=== PATIENT | female | born 1970 | race Two or more races ===

== ENCOUNTER 2024-03-29 09:37 | Inpatient (IN) | payer OTHER ==
[~2024-03-29] VITALS: Ht 167.6 cm; Wt 77.0 kg
[2024-03-29 10:36] LABS: Basophils # (auto) 0 10 ^3/uL (0-0.2); Basophils % (auto) 0.3 % (0.0-2.0); Eosinophils # (auto) 0 10 ^3/uL (0-0.8); Eosinophils % (auto) 0.1 % (0.0-7.0)
[2024-03-29 10:37] LABS: Hematocrit 32.3 % (36.0-46.0); Hemoglobin 10.7 g/dL (12.2-16.2); Lymphocytes # (auto) 0.7 10 ^3/uL (0.4-5.4); Lymphocytes % (auto) 5.1 % (10.0-50.0); Mean Corpuscular Hemoglobin 26.1 pg (28.0-32.0); Mean Corpuscular Hgb Conc. 33.1 g/dL (32.0-36.0); Mean Corpuscular Volume 78.9 fL (80.0-100.0); Monocytes # (auto) 1.4 10 ^3/uL (0-1.3); Monocytes % (auto) 9.8 % (0.0-12.0); Neutrophils % (auto) 84.7 % (37.0-80.0); Platelet Count (auto) 239 10^3/uL (140-450); Red Cell Distribution Width 17.6 % (11.8-14.3); White Blood Cell 14.1 10^3/uL (4.4-10.8)
[2024-03-29 10:44] LABS: Chloride 97 mmol/L (98-107); Potassium 3.8 mmol/L (3.5-5.1); Sodium 132 mmol/L (136-145)
[2024-03-29 10:45] LABS: Anion Gap 7 (5-15); Carbon Dioxide 28 mmol/L (20-31)
[2024-03-29 10:46] LABS: Calcium 9.5 mg/dL (8.7-10.4)
[2024-03-29 10:51] LABS: BUN/Creatinine Ratio 10.9 (10.0-20.0); Blood Urea Nitrogen 11 mg/dL (9-23); Glucose 336 mg/dL (74-106); Lipase 55 U/L (12-53)
--- NOTE | 2024-03-29 11:08 | ED.PDOC ---
GI ASSESSMENT HPI Comments 53 year old female presents to the ED with chief complaint of abdominal pain. Patient reports that she has been experiencing suprapubic abdominal pain that radiates up to her epigastric region along with associated symptoms of chills, fever, difficulty urinating, dysuria, cough, and headache for the past 4 days. Patient denies any N/V/D, dizziness, hematuria, melena, SOB, or chest pain. Chief Complaint: Abdominal Pain Time Seen by MD: 11:05 Reviewed Notes: Nurses Notes, Medications, Allergies Allergies: Coded Allergies: Erythromycin (Verified Allergy, Unknown, 03/29/24) Penicillins (Verified Allergy, Unknown, 03/29/24) Information Source: Patient Mode of Arrival: Ambulatory Timing: Days Duration: Since onset Prehospital treatment: None Quality: Aching Vomitus: None Stool: Normal Severity: Moderate Recent: None Recent Hx of: None Pain Location: Epigastric, Suprapubic Modifying Factors: Nothing Associated sign and symptoms: Abdominal Pain, Fever Past Medical History PAST MEDICAL HISTORY: DM Surgical History: Cholecystectomy, Hysterectomy (Partial) [employer]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 all [employer]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 Hx Family History Family History: Reviewed,noncontributory to illness Social History Smoker: Non-Smoker Alcohol: Denies ETOH Use Drugs: Denies Drug Use Lives In: Home Constitutional: reports: chills, fever; denies: diaphoresis, fatigue, malaise, sweats, weakness, others EENTM: denies: blurred vision, double vision, ear bleeding, ear discharge, ear drainage, ear pain, ear ringing, eye pain, eye redness, hearing loss, mouth pain, mouth swelling, nasal discharge, nose bleeding, nose congestion, nose pain, photophobia, tearing, throat pain, throat swelling, voice changes, others Respiratory: reports: cough; denies: hemoptysis, orthopnea, SOB at rest, shortness of breath, SOB with excertion, stridor, wheezing, others Cardiovascular: denies: chest pain, dizzy spells, diaphoresis, Dyspnea on exertion, edema, irregular heart beat, left arm pain, lightheadedness, palpitations, PND, syncope, others Gastrointestinal: reports: abdominal pain; denies: abdomen distended, blood streaked bowels, constipated, diarrhea, dysphagia, difficulty swallowing, hematemesis, melena, nausea, poor appetite, poor fluid intake, rectal bleeding, rectal pain, vomiting, others Genitourinary: reports: dysuria, others (Difficulty urinating); denies: abnormal vagina bleeding, burning, dyspareunia, flank pain, frequency, hematuria, incontinence, pain, , vagina discharge, urgency Neurological: reports: headache; denies: dizziness, fainting, left sided numbness, left sided weakness, numbness, paresthesia, pre-existing deficit, right sided numbness, right sided weakness, seizure, speech problems, tingling, tremors, weakness, others Musculoskeletal: denies: back pain, gout, joint pain, joint swelling, muscle pain, muscle stiffness, neck pain, others Integumetry: denies: bruises, change in color, change in hair/nails, dryness, laceration, lesions, lumps, rash, wounds, others Allergic/Immunocompromised: denies: Difficulty Healing, Frequent Infections, Hives, Itching, others Hematologic/Lymphatic: denies: anemia, blood clots, easy bleeding, easy bruising, swollen glands, others Endocrine: denies: excessive hunger, excessive sweating, excessive thirst, excessive urination, flushing, intolerance to cold, intolerance to heat, unexplained weight gain, unexplained weight loss, others Psychiatric: denies: anxiety, bipolar disorder, depression, hopeless, panic disorder, schizophrenia, sleepless, suicidal, others All Other Systems: Reviewed and Negative Physical Exam General Appearance: Moderate Distress, Normal HEENT: Normal ENT Inspection, PERRL/EOMI Neck: Full Range of Motion, Non-Tender, Normal, Normal Inspection Respiratory: Chest Non-Tender, Lungs Clear, No Accessory Muscle Use, No Respiratory Distress, Normal Breath Sounds Cardiovascular: No Edema, No JVD, No Murmur, No Gallop, Normal Peripheral Pulses, Tachycardia Breast Exam: Deferred Gastrointestinal: No Organomegaly, Non Tender, No Pulsatile Mass, Normal Bowel Sounds, Soft Genitalia: Deferred Pelvic: Deferred Rectal: Deferred Extremities: No calf tenderness, Normal capillary refill, Normal inspection, Normal range of motion, Non-tender, No pedal edema Musculoskeletal : Apperance: Normal Neurologic: Alert, endoscopy rn II-XII nml as Tested, No Motor Deficits, Normal Affect, Normal Mood, No Sensory Deficits Cerebellar Function: NOT DONE Reflexes: NOT DONE Skin: Dry, Normal Color, Warm Peripheral Pulses: 3+ Radial (R), 3+ Radial (L) Lymphatic: No Adenopathy Was a procedure done? Was a procedure done?: No GI differential Dx Differential Diagnosis: Constipation, Diverticular disease, Esophagitis, Gastritis/PUD, Gastroenteritis X-Ray, Labs, Meds, VS Vital Signs Date Time Temp Pulse Resp B/P (MAP) Pulse Ox O2 Delivery O2 Flow Rate FiO2 03/29/24 10:05 118 03/29/24 09:55 100.0 114 20 119/65 (83) 96 03/29/24 09:55 100.0 114 20 119/65 (83) 96 100.0 Lab Test 03/29/24 10:19 03/29/24 10:00 Range/Units White Blood Count 14.1 H 4.4-10.8 10^3/uL Red Blood Count 4.10 4.0-5.20 10^6/uL Hemoglobin 10.7 L 12.2-16.2 g/dL Hematocrit 32.3 L 36.0-46.0 % Mean Corpuscular Volume 78.9 L 80.0-100.0 fL Mean Corpuscular Hemoglobin 26.1 L 28.0-32.0 pg Mean Corpuscular Hemoglobin Concent 33.1 32.0-36.0 g/dL Red Cell Distribution Width 17.6 H 11.8-14.3 % Platelet Count 239 140-450 10^3/uL Mean Platelet Volume 8.1 6.9-10.8 fL Neutrophils (%) (Auto) 84.7 H 37.0-80.0 % Lymphocytes (%) (Auto) 5.1 L 10.0-50.0 % Monocytes (%) (Auto) 9.8 0.0-12.0 % Eosinophils (%) (Auto) 0.1 0.0-7.0 % Basophils (%) (Auto) 0.3 0.0-2.0 % Neutrophils # (Auto) 12.0 H 1.6-8.6 10 ^3/uL Lymphocytes # (Auto) 0.7 0.4-5.4 10 ^3/uL Monocytes # (Auto) 1.4 H 0-1.3 10 ^3/uL Eosinophils # (Auto) 0 0-0.8 10 ^3/uL Basophils # (Auto) 0 0-0.2 10 ^3/uL Nucleated Red Blood Cells 0.0 % Sodium Level 132 L 136-145 mmol/L Potassium Level 3.8 3.5-5.1 mmol/L Chloride Level 97 L 98-107 mmol/L Carbon Dioxide Level 28 20-31 mmol/L Anion Gap 7 5-15 Blood Urea Nitrogen 11 9-23 mg/dL Creatinine 1.01 0.550-1.02 mg/dL Glomerular Filtration Rate Calc 66 >90 mL/min BUN/Creatinine Ratio 10.9 10.0-20.0 Serum Glucose 336 H 74-106 mg/dL Calcium Level 9.5 8.7-10.4 mg/dL Lipase 55 H 12-53 U/L Urine Color Light-yellow Yellow Urine Clarity Cloudy H Clear Urine pH 6.0 5.0-9.0 Urine Specific [place] 1.007 1.001-1.035 Urine Protein 1+ H Negative Urine Ketones Negative Negative Urine Blood Trace H Negative /uL Urine Nitrite Negative Negative Urine Bilirubin Negative Negative Urine Urobilinogen Normal Negative mg/dL Urine Leukocyte Esterase 3+ Negative /uL Urine RBC 3 0 - 4 /hpf Urine WBC 348 0 - 5 /hpf Urine Squamous Epithelial Cells Few <5 /hpf Urine Bacteria Few H None Seen /hpf Urine Glucose 4+ H Normal mg/dL Patient alert. Complaining of abdominal pain. Vitals stable. Answering all questions. Lipase elevated. Possible pancreatitis. Urinalysis shows sepsis. Urosepsis. Blood sugar elevated. Establish intravenous access. Was given fluids. She has fever. She is tachycardic. Blood cultures. Lactic acid level. Was given insulin. Was given Levaquin. Reviewed her previous visit. Explained to the patient. Continue cardiac monitoring. Time of 1ST Reevaluation: 12:05 Reevaluation 1ST: Unchanged Patient Education/Counseling: Diagnosis, Treatment Family Education/Counseling: No Family Present Departure 1 Departure Time of Disposition: 12:39 Impression: Primary Impression: Sepsis Qualified Codes: A41.9 - Sepsis, unspecified organism Additional Impressions: Acute pancreatitis Qualified Codes: K85.90 - Acute pancreatitis without necrosis or infection, unspecified Sepsis due to urinary tract infection Uncontrolled diabetes mellitus Qualified Codes: E13.65 - Other specified diabetes mellitus with hyperglycemia Disposition: ADMITTED INPATIENT Admit to: Med Surg Condition: Guarded Critical Care Note Critical Care Time?: Yes (90 min-critical care time only) Stability Stability form required: No Heart Score Heart Score: Heart Score Response (Comments) Value History N/A 0 EKG N/A 0 Age N/A 0 Risk Factors N/A 0 Troponin N/A 0 Total 0 I personally scribed for REX RODRIGUEZ MD ([email or web address]) on 03/29/24 at 11:08. Electronically submitted by Branden Sanchez ([email or web address]). REX RODRIGUEZ MD Mar 29, 2024 11:08
[2024-03-29 11:32] LABS: Urine Bacteria FEW /hpf (None Seen); Urine Blood TRACE /uL (Negative); Urine Color Light-Yellow (Yellow); Urine Protein, UAD 1+ (Negative); Urine Specific Gravity 1.007 (1.001-1.035); Urine Urobilinogen Normal (Negative); Urine WBC 348 /hpf (0 - 5)
[2024-03-29 11:36] LABS: Urine Clarity Cloudy (Clear)
[2024-03-29] MEDS: SODIUM CHLORIDE 0.9% 1,000 ML IV ONE ×2 (14:47→16:09)
[2024-03-29] MEDS ORDERED: DEXTROSE (50%) 50ML SYRG IV PRN (16:00)
[2024-03-29] MEDS ORDERED: HYDROcodone-ACET 5/325MG TAB PO PRN (16:00)
[2024-03-29] MEDS ORDERED: MORPHINE SULFATE INJ 2 MG/ml SYRG IV PRN (16:00)
[2024-03-29] MEDS ORDERED: ONDANSETRON HCL 4 MG/2 ML VIAL IV PRN (16:00)
[2024-03-29] MEDS ORDERED: SIMV20TA20 PO (16:05)
[2024-03-29] MEDS ORDERED: PREG100C66 PO (16:05)
[2024-03-29] MEDS ORDERED: PANT40T PO (16:05)
[2024-03-29] MEDS: InsuLIN REG 1unit/0.01ml Soln (100units/ml) IV ONE (16:09)
[2024-03-29] MEDS: levoFLOXacin 500MG 100 ML IV ONE (16:13)
[2024-03-29 16:15] VITALS: PULSE 122; RESP 18; O2SAT 99
--- NOTE | 2024-03-29 16:53 | DVH ---
Procedure: CT CT AB PEL WO CON-NO ORAL OR IV 03/29/2024 04:12 PM Indication:Abdominal pain. Comparison Study: None available at time of dictation. Technique: Axial images were obtained and reformatted in coronal and sagittal planes. All CT scans at this medical facility are performed using dose modulation techniques as appropriate t o a performed exam including the following: Automated exposure control was utilized; adjustment of th e MA and/or KV according to patient size; and use of iterative reconstruction technique. CT Dose: CTDI volume is 8.59 mGy. Dose-length product is 408.04 mGy*cm FINDINGS: Lower Chest: Unremarkable. Hepatobiliary: Hepatic steatosis. Gallbladder is surgically absent. Spleen: Unremarkable. Pancreas: Unremarkable. Adrenal Glands: Unremarkable. tract: The kidneys are normal in size bilaterally without hydronephrosis or nephrolithiasis. Bilat eral perinephric fat stranding noted. Suboptimal evaluation of bladder due to incomplete distention. A subcentimeter lucency seen in the left bladder wall. GI tract: The stomach is grossly normal in appearance. No evidence of small bowel obstruction. Scatte red colonic diverticula are noted without evidence of diverticulitis. The appendix is normal. Lymphatics: No mesenteric, retroperitoneal or periportal lymphadenopathy. Vasculature: The abdominal aorta is normal in in caliber. Pelvic Organs: Unremarkable Bones/soft tissues: No acute abnormality. Degenerative changes of the lumbar spine noted. Small fat-c ontaining umbilical hernia. Other: None. IMPRESSION: 1. Bilateral perinephric fat stranding without hydronephrosis or hydroureter. Pyelonephritis can not be ruled out. Evaluation is limited without IV contrast. Recommend clinical and biochemical correlat ion. 2. Subcentimeter lucent the left lateral bladder wall air or fatty lesion such as lipoma. Recommend c orrelation with ultrasound .
[2024-03-29] MEDS: ACCU-CHEK COMFORT CURVE STRIP VI SCH (17:54)
[2024-03-29] MEDS: InsuLIN REG 1unit/0.01ml Soln (100units/ml) SC SCH ×2 (17:55→22:18)
--- NOTE | 2024-03-29 18:24 | DVHHP2 ---
History of Present Illness Reason for Visit: Dysuria, suprapubic pain History of Present Illness 53-year-old female presented to the ED with chief complaint of abdominal pain. Patient reported that she had been experiencing suprapubic abdominal pain that radiated to the epigastric region along with chills, fever, difficulty ur inating, cough and headaches for the past 4 days. Patient denies chest pain, headache, dizziness, diaphoresis, shortness of breath, no nausea, vomiting endorsed by the patient. Patient was admitted for further evaluation medical management. Past Medical History DM Past Surgical History Cholecystectomy, Hysterectomy (Partial) Family History Reviewed noncontributory to the management of this case Smoke: No ALCOHOL: none Drugs: None Lives: with Family Review of Systems Constitutional: Yes: Chills; No: Fever, Sweats, Weakness, Malaise, Other Eyes: No: Pain, Vision change, Conjunctivae inflammation, Eyelid inflammation, Other, Redness ENT: No: Ear pain, Ear discharge, Nose pain, Nose discharge, Nose congestion, Mouth pain, Mouth swelling, Throat pain, Throat swelling, Other Respiratory: No: Cough, Dry, Shortness of breath, SOB with excertion, Wheezing, Hemoptysis, Pleuritic Pain, Sputum, Wheezing, Other Cardiovascular: No: Chest Pain, Palpitations, Orthopnea, Paroxysmal Noc. Dyspnea, Edema, Lt Headedness, Other Gastrointestinal: Abdominal Pain; No: Nausea, Vomiting, Diarrhea, Constipation, Melena, Hematochezia, Other Genitourinary: Dysuria; No Frequency, No Incontinence, No Hematuria, No Retention; Other (CVA tenderness) Musculoskeletal: No: other, neck pain, shoulder pain, arm pain, back pain, hand pain, leg pain, foot pain Skin: No: Rash, Lesions, Jaundice, Bruising, Other Neurological: No: Weakness, Numbness, Incoordination, Change in speech, Confusion, Seizures, Other Allergies: Coded Allergies: Erythromycin (Verified Allergy, Unknown, 03/29/24) Penicillins (Verified Allergy, Unknown, 03/29/24) Medications Current Medications Medications Dose Ordered Sig/Kay Route Start Time Stop Time Status Last Admin Dose Admin Acetaminophen/ Hydrocodone Bitart 1 tab Q4HP PRN PO 03/29/24 16:00 Ondansetron HCl 4 mg Q4HP PRN IV 03/29/24 16:00 Morphine Sulfate 2 mg Q4HPRN PRN IV 03/29/24 16:00 Diagnostic Test (Pha) 1 strip ACHS 03/29/24 17:00 03/29/24 17:54 1 STRIP Insulin Human Regular HS SC 03/29/24 22:00 Insulin Human Regular AC SC 03/29/24 17:00 03/29/24 17:55 2 UNITS Dextrose 50 ml UD PRN IV 03/29/24 16:00 Pantoprazole Sodium 40 mg DAILY PO 03/30/24 10:00 Pregabalin 100 mg BID PO 03/29/24 22:00 Atorvastatin Calcium 10 mg HS PO 03/29/24 22:00 Lorazepam 0.5 mg Q12HP PRN PO 03/29/24 17:30 Exam Vital Signs Vital Signs Date Time Temp Pulse Resp B/P (MAP) Pulse Ox O2 Delivery O2 Flow Rate FiO2 03/29/24 16:15 122 18 129/65 (86) 99 03/29/24 16:15 Room Air* 0 21 03/29/24 14:36 99.9 99.9 General Appearance: Alert, Oriented X3, Cooperative, No acute distress HEENT: Atraumatic, PERRLA, EOMI, Mucous membr. moist/pink Respiratory: Clear to auscultation, Normal air movement Cardiovascular: Regular rate, Normal S1, Normal S2, No murmurs Abdominal: Normal bowel sounds, Soft, No tenderness, No hepatospenomegaly, No masses Extremities: No clubbing, No cyanosis, No edema, Normal pulses, No tenderness/swelling Skin: No rashes, No breakdown, No significant lesion Neuro: Normal gait, Normal speech, Strength at 5/5 X4 ext, Normal tone, Sensation intact, Cranial nerves 3-12 NL, Reflexes 2+ Psych/Mental Status: Mental status NL, Mood NL Labs/Xrays Labs, imaging and ED notes reviewed Labs Test 03/29/24 17:33 03/29/24 15:41 03/29/24 10:19 03/29/24 10:00 Range/Units POC Glucose 155 H 70-106 mg/dl Lactic Acid Level 1.9 0.4-2.0 mmol/L White Blood Count 14.1 H 4.4-10.8 10^3/uL Red Blood Count 4.10 4.0-5.20 10^6/uL Hemoglobin 10.7 L 12.2-16.2 g/dL Hematocrit 32.3 L 36.0-46.0 % Mean Corpuscular Volume 78.9 L 80.0-100.0 fL Mean Corpuscular Hemoglobin 26.1 L 28.0-32.0 pg Mean Corpuscular Hemoglobin Concent 33.1 32.0-36.0 g/dL Red Cell Distribution Width 17.6 H 11.8-14.3 % Platelet Count 239 140-450 10^3/uL Mean Platelet Volume 8.1 6.9-10.8 fL Neutrophils (%) (Auto) 84.7 H 37.0-80.0 % Lymphocytes (%) (Auto) 5.1 L 10.0-50.0 % Monocytes (%) (Auto) 9.8 0.0-12.0 % Eosinophils (%) (Auto) 0.1 0.0-7.0 % Basophils (%) (Auto) 0.3 0.0-2.0 % Neutrophils # (Auto) 12.0 H 1.6-8.6 10 ^3/uL Lymphocytes # (Auto) 0.7 0.4-5.4 10 ^3/uL Monocytes # (Auto) 1.4 H 0-1.3 10 ^3/uL Eosinophils # (Auto) 0 0-0.8 10 ^3/uL Basophils # (Auto) 0 0-0.2 10 ^3/uL Nucleated Red Blood Cells 0.0 % Sodium Level 132 L 136-145 mmol/L Potassium Level 3.8 3.5-5.1 mmol/L Chloride Level 97 L 98-107 mmol/L Carbon Dioxide Level 28 20-31 mmol/L Anion Gap 7 5-15 Blood Urea Nitrogen 11 9-23 mg/dL Creatinine 1.01 0.550-1.02 mg/dL Glomerular Filtration Rate Calc 66 >90 mL/min BUN/Creatinine Ratio 10.9 10.0-20.0 Serum Glucose 336 H 74-106 mg/dL Calcium Level 9.5 8.7-10.4 mg/dL Lipase 55 H 12-53 U/L Urine Color Light-yellow Yellow Urine Clarity Cloudy H Clear Urine pH 6.0 5.0-9.0 Urine Specific [place] 1.007 1.001-1.035 Urine Protein 1+ H Negative Urine Ketones Negative Negative Urine Blood Trace H Negative /uL Urine Nitrite Negative Negative Urine Bilirubin Negative Negative Urine Urobilinogen Normal Negative mg/dL Urine Leukocyte Esterase 3+ Negative /uL Urine RBC 3 0 - 4 /hpf Urine WBC 348 0 - 5 /hpf Urine Squamous Epithelial Cells Few <5 /hpf Urine Bacteria Few H None Seen /hpf Urine Glucose 4+ H Normal mg/dL Assessment/Plan Assessment/Plan Acute pyelonephritis Admit to medical/surgical Started on antibiotics Pain meds p.r.n. Zofran p.r.n. nausea CT abdomen/pelvis showed bilateral perinephric fat stranding without hydronephrosis or hydroureter. Incidental possible left bladder wall fatty lesion. History of anxiety Patient takes 1 mg Ativan q.12 hours p.r.n. Uncontrolled Diabetes mellitus type 2 Accu-Chek a.c. HS Moderate insulin sliding scale Neuropathy Resume home Lyrica dose Chronic hyperlipidemia Resume home med FEN/PPX GI prophylaxis-Protonix VTE prophylaxis-not indicated Consistent carb diet Plan discussed with: Patient My Orders Orders - AUSTIN BENJAMIN Procedure Category Date Status Time Admit ADMIT 03/29/24 Transmitted 15:48 Code Status CODE 03/29/24 Transmitted 15:48 Vital Signs [facility] 03/29/24 In Process 15:48 Review Orders With [facility] 03/29/24 In Process Adm. 15:48 Bedrest With Bathroom [facility] 03/29/24 In Process Privileg 15:48 Notify Of Changes [facility] 03/29/24 In Process From Base 15:48 Advance Directive [facility] 03/29/24 In Process 15:48 Basic Metabolic Panel LAB 03/30/24 Verified 04:00 Complete Blood Count LAB 03/30/24 Verified 04:00 Patient Condition ORDERS 03/29/24 Transmitted 15:48 Allergies EMELYN 03/29/24 In Process 15:48 Hydrocodone-Acet PHA 03/29/24 In Process 5/325mg Tab ([place] 16:00 Ondansetron Hcl PHA 03/29/24 In Process (Zofran) 16:00 Morphine Sulfate PHA 03/29/24 In Process Injection 16:00 Hemoglobin A1c LAB 03/30/24 Verified 04:00 Glucose Blood PHA 03/29/24 In Process (Accu-Chek Comfort 17:00 Insulin R (Human) PHA 03/29/24 In Process (Insulin R) 22:00 Insulin R (Human) PHA 03/29/24 In Process (Insulin R) 17:00 Dextrose 50% Syringe PHA 03/29/24 In Process 16:00 Ct Ab Pel Wo Con-No CT 03/29/24 Resulted Oral Or Iv 15:48 Pantoprazole Tablet PHA 03/30/24 In Process (Protonix Tablet) 10:00 Pregabalin Capsule PHA 03/29/24 In Process (Lyrica Capsule) 22:00 Atorvastatin (Lipitor) PHA 03/29/24 In Process 22:00 Consistent DIET 03/29/24 Transmitted Carb(Ccho)Diabetes Dinner Lorazepam Tablet PHA 03/29/24 In Process (Ativan Tablet) 17:30 Date of Service: Mar 29, 2024 Billing Provider: AUSTIN BENJAMIN Common Visit Codes: [id number] INP/OBS CARE (HIGH) AUSTIN BENJAMIN Mar 29, 2024 18:24
[2024-03-29 18:37] VITALS: BP 130/68; PULSE 129; RESP 20; TEMP 103.2; O2SAT 97
[2024-03-29] MEDS: ACETAMINOPHEN 325 MG TAB PO ONE (18:58)
--- NOTE | 2024-03-29 19:01 | ECG ---
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
[2024-03-29] MEDS: LORazepam 0.5 MG TAB PO PRN (21:11)
[2024-03-29] MEDS: PREGABALIN 25 MG CAP PO SCH (22:08)
[2024-03-29] MEDS: ATORVASTATIN 20 MG TAB PO SCH (22:09)
[2024-03-30] VITALS (8 sets, daily range): BP systolic 113–136; BP diastolic 60–78; PULSE 99–116; RESP 18–20; TEMP 98.1–99.5; O2SAT 95–97
[2024-03-30] MEDS: ACETAMINOPHEN 325 MG TAB PO PRN (02:25)
[2024-03-30] MEDS: VANCOMYCIN 1GM/200ML PREMIX IV ONE (04:15)
[2024-03-30] MEDS ORDERED: VANCOMYCIN 1GM/200ML PREMIX 200 ML IV ONE (04:15)
[2024-03-30] MEDS ORDERED: VANCOMYCIN PER PHARMACY 0 MG IV SCH (04:15)
[2024-03-30] MEDS: VANCOMYCIN 1.75GM/350ML 350 ML IV ONE (04:59)
[2024-03-30 06:22] LABS: Eosinophils # (auto) 0 10 ^3/uL (0-0.8); Hematocrit 29.9 % (36.0-46.0); Hemoglobin 9.9 g/dL (12.2-16.2); Lymphocytes # (auto) 1.3 10 ^3/uL (0.4-5.4); Lymphocytes % (auto) 8.7 % (10.0-50.0); Monocytes # (auto) 1.8 10 ^3/uL (0-1.3); Monocytes % (auto) 11.8 % (0.0-12.0); Red Blood Cells 3.75 10^6/uL (4.0-5.20)
[2024-03-30 06:25] LABS: Basophils # (auto) 0.1 10 ^3/uL (0-0.2); Basophils % (auto) 0.3 % (0.0-2.0); Eosinophils % (auto) 0.1 % (0.0-7.0); Mean Corpuscular Hemoglobin 26.3 pg (28.0-32.0); Mean Corpuscular Volume 79.5 fL (80.0-100.0); Neutrophils # (auto) 12.4 10 ^3/uL (1.6-8.6); Neutrophils % (auto) 79.1 % (37.0-80.0); Nucleated Red Blood Cells % 0.1 %; Platelet Count (auto) 248 10^3/uL (140-450); Red Cell Distribution Width 17.1 % (11.8-14.3); White Blood Cell 15.6 10^3/uL (4.4-10.8)
[2024-03-30 06:34] LABS: Chloride 103 mmol/L (98-107); Potassium 3.3 mmol/L (3.5-5.1); Sodium 137 mmol/L (136-145)
[2024-03-30 06:35] LABS: Anion Gap 7 (5-15); Calcium 9.5 mg/dL (8.7-10.4); Carbon Dioxide 27 mmol/L (20-31)
[2024-03-30 06:40] LABS: BUN/Creatinine Ratio 10.1 (10.0-20.0); Blood Urea Nitrogen 9 mg/dL (9-23); Glucose 159 mg/dL (74-106)
[2024-03-30] MEDS: PANTOPRAZOLE 40 MG TAB PO SCH (09:18)
--- NOTE | 2024-03-30 13:47 | DVHPN2 ---
Reviewed: Care Plan, H&P, Labs, Medications, Previous Orders, Radiology Changes from previous H/P or p: No Changes Eyes: No Pain, No Vision change, No Conjunctivae inflammation, No Eyelid inflammation, No Other, No Redness ENT: No Ear pain, No Ear discharge, No Nose pain, No Nose discharge, No Nose congestion, No Mouth pain, No Mouth swelling, No Throat pain, No Throat swelling, No Other Cardiovascular: No Chest Pain, No Palpitations, No Orthopnea, No Paroxysmal Noc. Dyspnea, No Edema, No Lt Headedness, No Other Respiratory: No Cough, No Dry, No Shortness of breath, No SOB with excertion, No Wheezing, No Hemoptysis, No Pleuritic Pain, No Sputum, No Other Gastrointestinal: No Nausea, No Vomiting; Abdominal Pain; No Diarrhea, No Constipation, No Melena, No Hematochezia, No Other Genitourinary: Dysuria; No Frequency, No Incontinence, No Hematuria, No Retention; Other (CVA tenderness) Musculoskeletal: No other, No neck pain, No shoulder pain, No arm pain, No back pain, No hand pain, No leg pain, No foot pain Skin: No Rash, No Lesions, No Jaundice, No Bruising, No Other Objective Vitals Vital Signs Date Time Temp Pulse Resp B/P (MAP) Pulse Ox O2 Delivery O2 Flow Rate FiO2 03/30/24 09:00 98.2 99 18 125/75 (92) 97 98.2 03/30/24 08:10 Room Air* 0 21 Intake/Output Intake and Output 03/30/24 07:00 Intake Total 1200 ml Balance 1200 ml Intake Oral 100 ml IV Total 1100 ml # Voids 2 Medications Current Medications Medications Dose Ordered Sig/Kay Route Start Time Stop Time Status Last Admin Dose Admin Acetaminophen/ Hydrocodone Bitart 1 tab Q4HP PRN PO 03/29/24 16:00 Ondansetron HCl 4 mg Q4HP PRN IV 03/29/24 16:00 Morphine Sulfate 2 mg Q4HPRN PRN IV 03/29/24 16:00 Diagnostic Test (Pha) 1 strip ACHS 03/29/24 17:00 03/30/24 11:30 1 STRIP Insulin Human Regular HS SC 03/29/24 22:00 03/29/24 22:18 6 UNITS Insulin Human Regular AC SC 03/29/24 17:00 03/30/24 11:30 6 UNITS Dextrose 50 ml UD PRN IV 03/29/24 16:00 Pantoprazole Sodium 40 mg DAILY PO 03/30/24 10:00 03/30/24 09:18 40 MG Pregabalin 100 mg BID PO 03/29/24 22:00 03/30/24 09:19 100 MG Atorvastatin Calcium 10 mg HS PO 03/29/24 22:00 03/29/24 22:09 10 MG Lorazepam 0.5 mg Q12HP PRN PO 03/29/24 17:30 03/30/24 09:19 0.5 MG Acetaminophen 650 mg Q6HP PRN PO 03/30/24 02:15 03/30/24 09:25 650 MG Vancomycin HCl 0 ml @ 0 mls/hr UD IV 03/30/24 04:15 Vancomycin HCl 150 ml @ 150 mls/hr Q12H IV 03/30/24 18:00 Laboratory Results Laboratory Tests 03/30/24 05:43 Chemistry Test 03/30/24 05:43 Calcium Level 9.5 mg/dL (8.7-10.4) HgA1c, TSH Test 03/30/24 05:43 Hemoglobin A1c 6.9 % A1C (<5.7) H Urinalysis Test 03/29/24 10:00 Urine Color Light-yellow (Yellow) Urine Clarity Cloudy (Clear) H Urine pH 6.0 (5.0-9.0) Urine Specific [place] 1.007 (1.001-1.035) Urine Protein 1+ (Negative) H Urine Ketones Negative (Negative) Urine Blood Trace /uL (Negative) H Urine Nitrite Negative (Negative) Urine Bilirubin Negative (Negative) Urine Urobilinogen Normal mg/dL (Negative) Urine Leukocyte Esterase 3+ /uL (Negative) Urine RBC 3 /hpf (0 - 4) Urine WBC 348 /hpf (0 - 5) Urine Squamous Epithelial Cells Few /hpf (<5) Urine Bacteria Few /hpf (None Seen) H Urine Glucose 4+ mg/dL (Normal) H Microbiology Microbiology Date/Time Source Procedure Growth Status 03/29/24 13:26 Blood Blood Culture - Preliminary Resulted Labs and/or images reviewed: Labs reviewed by me, Image(s) reviewed by me Assessment/Plan Assessment/Plan Secondary to acute urinary tract infection Acute urinary tract infection: Blood cultures urine cultures, stop vancomycin start Levaquin, patient is allergic to penicillin Acute bilateral pyelonephritis Diabetes: Insulin sliding scale Time spent 50 minutes Patient is full code Advanced care planning time 20 minutes Plan discussed with: Patient My Orders Orders - RODO VAN MD Procedure Category Date Status Time Urine Bacterial ANDRES 03/30/24 Logged Culture 13:44 Levofloxacin Levaquin PHA 03/31/24 Verified 10:00 Levofloxacin Levaquin PHA 03/30/24 Verified 13:45 Date of Service: Mar 30, 2024 Billing Provider: RODO VAN MD Common Visit Codes: [id number] INP/OBS CARE(HIGH) Secondary Visit Codes: [id number] CARE PLAN 30 MINUTES RODO VAN MD Mar 30, 2024 13:47
[2024-03-30] MEDS: levoFLOXacin 500MG 100 ML IV ONE (14:32)
[2024-03-30] MEDS ORDERED: VANCOMYCIN 750mg/150ml 150 ML IV SCH (18:00)
[2024-03-31 01:00] VITALS: BP 128/77; PULSE 101; RESP 18; TEMP 98.4; O2SAT 96
[2024-03-31 05:00] VITALS: BP 145/71; PULSE 111; RESP 18; TEMP 99.4; O2SAT 95
[2024-03-31 06:32] LABS: Basophils # (auto) 0 10 ^3/uL (0-0.2); Eosinophils # (auto) 0 10 ^3/uL (0-0.8); Hemoglobin 10.9 g/dL (12.2-16.2); Mean Corpuscular Hgb Conc. 33.1 g/dL (32.0-36.0); Mean Corpuscular Volume 78.5 fL (80.0-100.0); Monocytes # (auto) 1.9 10 ^3/uL (0-1.3)
[2024-03-31 06:35] LABS: Basophils % (auto) 0.2 % (0.0-2.0); Eosinophils % (auto) 0.2 % (0.0-7.0); Lymphocytes % (auto) 13.1 % (10.0-50.0); Monocytes % (auto) 12.2 % (0.0-12.0); Neutrophils # (auto) 11.5 10 ^3/uL (1.6-8.6); Neutrophils % (auto) 74.3 % (37.0-80.0); Platelet Count (auto) 332 10^3/uL (140-450); Red Cell Distribution Width 18.1 % (11.8-14.3); White Blood Cell 15.5 10^3/uL (4.4-10.8)
--- NOTE | 2024-03-31 08:24 | DVHPN2 ---
Reviewed: Care Plan, H&P, Labs, Medications, Previous Orders, Radiology Changes from previous H/P or p: No Changes Eyes: No Pain, No Vision change, No Conjunctivae inflammation, No Eyelid inflammation, No Other, No Redness ENT: No Ear pain, No Ear discharge, No Nose pain, No Nose discharge, No Nose congestion, No Mouth pain, No Mouth swelling, No Throat pain, No Throat swelling, No Other Cardiovascular: No Chest Pain, No Palpitations, No Orthopnea, No Paroxysmal Noc. Dyspnea, No Edema, No Lt Headedness, No Other Respiratory: No Cough, No Dry, No Shortness of breath, No SOB with excertion, No Wheezing, No Hemoptysis, No Pleuritic Pain, No Sputum, No Other Gastrointestinal: No Nausea, No Vomiting; Abdominal Pain; No Diarrhea, No Constipation, No Melena, No Hematochezia, No Other Genitourinary: Dysuria; No Frequency, No Incontinence, No Hematuria, No Retention; Other (CVA tenderness) Musculoskeletal: No other, No neck pain, No shoulder pain, No arm pain, No back pain, No hand pain, No leg pain, No foot pain Skin: No Rash, No Lesions, No Jaundice, No Bruising, No Other Objective Vitals Vital Signs Date Time Temp Pulse Resp B/P (MAP) Pulse Ox O2 Delivery O2 Flow Rate FiO2 03/31/24 05:00 99.4 111 18 145/71 (95) 95 99.4 03/30/24 20:00 Room Air* 0 21 Intake/Output Intake and Output 03/31/24 07:00 Intake Total 2190 ml Balance 2190 ml Intake Oral 400 ml IV Total 350 ml Other 1440 ml # Voids 9 Medications Current Medications Medications Dose Ordered Sig/Kay Route Start Time Stop Time Status Last Admin Dose Admin Acetaminophen/ Hydrocodone Bitart 1 tab Q4HP PRN PO 03/29/24 16:00 Ondansetron HCl 4 mg Q4HP PRN IV 03/29/24 16:00 Morphine Sulfate 2 mg Q4HPRN PRN IV 03/29/24 16:00 Diagnostic Test (Pha) 1 strip ACHS 03/29/24 17:00 03/31/24 06:14 1 STRIP Insulin Human Regular HS SC 03/29/24 22:00 03/30/24 21:37 3 UNITS Insulin Human Regular AC SC 03/29/24 17:00 03/31/24 06:15 2 UNITS Dextrose 50 ml UD PRN IV 03/29/24 16:00 Pantoprazole Sodium 40 mg DAILY PO 03/30/24 10:00 03/30/24 09:18 40 MG Pregabalin 100 mg BID PO 03/29/24 22:00 03/30/24 21:48 100 MG Atorvastatin Calcium 10 mg HS PO 03/29/24 22:00 03/30/24 21:48 10 MG Lorazepam 0.5 mg Q12HP PRN PO 03/29/24 17:30 03/30/24 22:07 0.5 MG Acetaminophen 650 mg Q6HP PRN PO 03/30/24 02:15 03/30/24 21:49 650 MG Levofloxacin/ Dextrose 100 ml @ 100 mls/hr DAILY IV 03/31/24 10:00 Laboratory Results Laboratory Tests 03/30/24 05:43 03/31/24 05:22 Urinalysis Test 03/29/24 10:00 Urine Color Light-yellow (Yellow) Urine Clarity Cloudy (Clear) H Urine pH 6.0 (5.0-9.0) Urine Specific [place] 1.007 (1.001-1.035) Urine Protein 1+ (Negative) H Urine Ketones Negative (Negative) Urine Blood Trace /uL (Negative) H Urine Nitrite Negative (Negative) Urine Bilirubin Negative (Negative) Urine Urobilinogen Normal mg/dL (Negative) Urine Leukocyte Esterase 3+ /uL (Negative) Urine RBC 3 /hpf (0 - 4) Urine WBC 348 /hpf (0 - 5) Urine Squamous Epithelial Cells Few /hpf (<5) Urine Bacteria Few /hpf (None Seen) H Urine Glucose 4+ mg/dL (Normal) H Microbiology Microbiology Date/Time Source Procedure Growth Status 03/29/24 13:26 Blood Blood Culture - Preliminary Resulted Labs and/or images reviewed: Labs reviewed by me, Image(s) reviewed by me Assessment/Plan Assessment/Plan Sepsis Secondary to acute urinary tract infection Acute urinary tract infection: urine cultures, stop vancomycin start Levaquin, patient is allergic to penicillin Bacteremia with Gram-negative rods, continue Levaquin Acute bilateral pyelonephritis Diabetes: Insulin sliding scale Time spent 50 minutes Patient is full code Advanced care planning time 20 minutes Plan discussed with: Patient My Orders Orders - RODO VAN MD Procedure Category Date Status Time Urine Bacterial ANDRES 03/30/24 Logged Culture 13:44 Levofloxacin 500mg PHA 03/31/24 In Process (Levaquin 500mg/ 100m 10:00 Date of Service: Mar 31, 2024 Billing Provider: RODO VAN MD Common Visit Codes: [id number] INP/OBS CARE(HIGH) RODO VAN MD Mar 31, 2024 08:24
[2024-03-31 08:30] VITALS: BP 138/72; PULSE 107; RESP 16; TEMP 99.4; O2SAT 94
[2024-03-31] MEDS: levoFLOXacin 500MG 100 ML IV SCH (11:24)
[2024-03-31 12:30] VITALS: BP 126/76; PULSE 103; RESP 17; TEMP 98.3; O2SAT 97
[2024-03-31 17:30] VITALS: BP 128/79; PULSE 90; RESP 17; TEMP 97.9; O2SAT 97
[2024-03-31 21:00] VITALS: BP 137/77; PULSE 109; RESP 20; TEMP 97.7; O2SAT 96
[2024-04-01] VITALS (7 sets, daily range): BP systolic 122–139; BP diastolic 63–80; PULSE 90–108; RESP 16–19; TEMP 98.2–99; O2SAT 92–99
--- NOTE | 2024-04-01 09:14 | DVHPN2 ---
Reviewed: Care Plan, H&P, Labs, Medications, Previous Orders, Radiology Changes from previous H/P or p: No Changes Eyes: No Pain, No Vision change, No Conjunctivae inflammation, No Eyelid inflammation, No Other, No Redness ENT: No Ear pain, No Ear discharge, No Nose pain, No Nose discharge, No Nose congestion, No Mouth pain, No Mouth swelling, No Throat pain, No Throat swelling, No Other Cardiovascular: No Chest Pain, No Palpitations, No Orthopnea, No Paroxysmal Noc. Dyspnea, No Edema, No Lt Headedness, No Other Respiratory: No Cough, No Dry, No Shortness of breath, No SOB with excertion, No Wheezing, No Hemoptysis, No Pleuritic Pain, No Sputum, No Other Gastrointestinal: No Nausea, No Vomiting; Abdominal Pain; No Diarrhea, No Constipation, No Melena, No Hematochezia, No Other Genitourinary: Dysuria; No Frequency, No Incontinence, No Hematuria, No Retention; Other (CVA tenderness) Musculoskeletal: No other, No neck pain, No shoulder pain, No arm pain, No back pain, No hand pain, No leg pain, No foot pain Skin: No Rash, No Lesions, No Jaundice, No Bruising, No Other Objective Vitals Vital Signs Date Time Temp Pulse Resp B/P (MAP) Pulse Ox O2 Delivery O2 Flow Rate FiO2 04/01/24 08:35 98.8 105 16 122/71 (88) 94 98.8 04/01/24 08:15 Room Air* 0 21 Intake/Output Intake and Output 04/01/24 07:00 Intake Total 4234 ml Output Total 1200 ml Balance 3034 ml Intake Oral 4134 ml IV Total 100 ml Output Urine Total 1200 ml # Voids 4 # Bowel Movements 3 Medications Current Medications Medications Dose Ordered Sig/Kay Route Start Time Stop Time Status Last Admin Dose Admin Acetaminophen/ Hydrocodone Bitart 1 tab Q4HP PRN PO 03/29/24 16:00 Ondansetron HCl 4 mg Q4HP PRN IV 03/29/24 16:00 Morphine Sulfate 2 mg Q4HPRN PRN IV 03/29/24 16:00 Diagnostic Test (Pha) 1 strip ACHS 03/29/24 17:00 04/01/24 06:19 1 STRIP Insulin Human Regular HS SC 03/29/24 22:00 03/31/24 21:14 2 UNITS Insulin Human Regular AC SC 03/29/24 17:00 03/31/24 16:45 3 UNITS Dextrose 50 ml UD PRN IV 03/29/24 16:00 Pantoprazole Sodium 40 mg DAILY PO 03/30/24 10:00 03/31/24 11:23 40 MG Pregabalin 100 mg BID PO 03/29/24 22:00 03/31/24 21:02 100 MG Atorvastatin Calcium 10 mg HS PO 03/29/24 22:00 03/31/24 21:00 10 MG Lorazepam 0.5 mg Q12HP PRN PO 03/29/24 17:30 03/31/24 21:01 0.5 MG Acetaminophen 650 mg Q6HP PRN PO 03/30/24 02:15 04/01/24 05:34 650 MG Levofloxacin/ Dextrose 100 ml @ 100 mls/hr DAILY IV 03/31/24 10:00 03/31/24 11:24 100 MLS/HR Laboratory Results Laboratory Tests 03/30/24 05:43 03/31/24 05:22 Urinalysis Test 03/29/24 10:00 Urine Color Light-yellow (Yellow) Urine Clarity Cloudy (Clear) H Urine pH 6.0 (5.0-9.0) Urine Specific [place] 1.007 (1.001-1.035) Urine Protein 1+ (Negative) H Urine Ketones Negative (Negative) Urine Blood Trace /uL (Negative) H Urine Nitrite Negative (Negative) Urine Bilirubin Negative (Negative) Urine Urobilinogen Normal mg/dL (Negative) Urine Leukocyte Esterase 3+ /uL (Negative) Urine RBC 3 /hpf (0 - 4) Urine WBC 348 /hpf (0 - 5) Urine Squamous Epithelial Cells Few /hpf (<5) Urine Bacteria Few /hpf (None Seen) H Urine Glucose 4+ mg/dL (Normal) H Microbiology Microbiology Date/Time Source Procedure Growth Status 03/29/24 13:26 Blood Blood Culture - Final Escherichia coli Complete Labs and/or images reviewed: Labs reviewed by me, Image(s) reviewed by me Assessment/Plan Assessment/Plan Sepsis Secondary to acute urinary tract infection Acute urinary tract infection: urine cultures, stop vancomycin start Levaquin, patient is allergic to penicillin Bacteremia with E coli sensitive to Levaquin, continue Levaquin, repeat blood cultures ordered Acute bilateral pyelonephritis Diabetes: Insulin sliding scale Time spent 40 minutes Patient is full code Advanced care planning time 20 minutes Plan discussed with: Patient Date of Service: Apr 01, 2024 Billing Provider: RODO VAN MD Common Visit Codes: [id number] INP/OBS CARE(HIGH) RODO VAN MD Apr 01, 2024 09:14
[2024-04-02] VITALS (7 sets, daily range): BP systolic 122–148; BP diastolic 71–82; PULSE 93–102; RESP 18–20; TEMP 97.5–98.2; O2SAT 94–97
--- NOTE | 2024-04-02 08:34 | DVHPN2 ---
Reviewed: Care Plan, H&P, Labs, Medications, Previous Orders, Radiology Changes from previous H/P or p: No Changes Eyes: No Pain, No Vision change, No Conjunctivae inflammation, No Eyelid inflammation, No Other, No Redness ENT: No Ear pain, No Ear discharge, No Nose pain, No Nose discharge, No Nose congestion, No Mouth pain, No Mouth swelling, No Throat pain, No Throat swelling, No Other Cardiovascular: No Chest Pain, No Palpitations, No Orthopnea, No Paroxysmal Noc. Dyspnea, No Edema, No Lt Headedness, No Other Respiratory: No Cough, No Dry, No Shortness of breath, No SOB with excertion, No Wheezing, No Hemoptysis, No Pleuritic Pain, No Sputum, No Other Gastrointestinal: No Nausea, No Vomiting; Abdominal Pain; No Diarrhea, No Constipation, No Melena, No Hematochezia, No Other Genitourinary: Dysuria; No Frequency, No Incontinence, No Hematuria, No Retention; Other (CVA tenderness) Musculoskeletal: No other, No neck pain, No shoulder pain, No arm pain, No back pain, No hand pain, No leg pain, No foot pain Skin: No Rash, No Lesions, No Jaundice, No Bruising, No Other Objective Vitals Vital Signs Date Time Temp Pulse Resp B/P (MAP) Pulse Ox O2 Delivery O2 Flow Rate FiO2 04/02/24 05:00 98.2 98 18 129/76 (93) 94 98.2 04/01/24 20:00 Room Air* 0 21 Intake/Output Intake and Output 04/02/24 07:00 Intake Total 4200 ml Output Total 1200 ml Balance 3000 ml Intake Oral 4100 ml IV Total 100 ml Output Urine Total 1200 ml # Voids 6 # Bowel Movements 4 Medications Current Medications Medications Dose Ordered Sig/Kay Route Start Time Stop Time Status Last Admin Dose Admin Acetaminophen/ Hydrocodone Bitart 1 tab Q4HP PRN PO 03/29/24 16:00 Ondansetron HCl 4 mg Q4HP PRN IV 03/29/24 16:00 Morphine Sulfate 2 mg Q4HPRN PRN IV 03/29/24 16:00 Diagnostic Test (Pha) 1 strip ACHS 03/29/24 17:00 04/02/24 06:23 1 STRIP Insulin Human Regular HS SC 03/29/24 22:00 04/01/24 22:05 3 UNITS Insulin Human Regular AC SC 03/29/24 17:00 04/02/24 06:24 2 UNITS Dextrose 50 ml UD PRN IV 03/29/24 16:00 Pantoprazole Sodium 40 mg DAILY PO 03/30/24 10:00 04/01/24 09:22 40 MG Pregabalin 100 mg BID PO 03/29/24 22:00 04/01/24 22:07 100 MG Atorvastatin Calcium 10 mg HS PO 03/29/24 22:00 04/01/24 22:07 10 MG Lorazepam 0.5 mg Q12HP PRN PO 03/29/24 17:30 04/01/24 09:32 0.5 MG Acetaminophen 650 mg Q6HP PRN PO 03/30/24 02:15 04/01/24 05:34 650 MG Levofloxacin/ Dextrose 100 ml @ 100 mls/hr DAILY IV 03/31/24 10:00 04/01/24 09:23 100 MLS/HR Laboratory Results Laboratory Tests 03/30/24 05:43 03/31/24 05:22 Urinalysis Test 03/29/24 10:00 Urine Color Light-yellow (Yellow) Urine Clarity Cloudy (Clear) H Urine pH 6.0 (5.0-9.0) Urine Specific [place] 1.007 (1.001-1.035) Urine Protein 1+ (Negative) H Urine Ketones Negative (Negative) Urine Blood Trace /uL (Negative) H Urine Nitrite Negative (Negative) Urine Bilirubin Negative (Negative) Urine Urobilinogen Normal mg/dL (Negative) Urine Leukocyte Esterase 3+ /uL (Negative) Urine RBC 3 /hpf (0 - 4) Urine WBC 348 /hpf (0 - 5) Urine Squamous Epithelial Cells Few /hpf (<5) Urine Bacteria Few /hpf (None Seen) H Urine Glucose 4+ mg/dL (Normal) H Microbiology Microbiology Date/Time Source Procedure Growth Status 03/29/24 13:26 Blood Blood Culture - Final Escherichia coli Complete Labs and/or images reviewed: Labs reviewed by me, Image(s) reviewed by me Assessment/Plan Assessment/Plan Sepsis Secondary to acute urinary tract infection Acute urinary tract infection: Treated with Levaquin, Bacteremia with E coli sensitive to Levaquin, continue Levaquin, repeat blood cultures pending Acute bilateral pyelonephritis Diabetes: Insulin sliding scale Time spent 40 minutes Patient is full code Advanced care planning time 20 minutes Plan discussed with: Patient My Orders Orders - RODO VAN MD Procedure Category Date Status Time Blood Culture ANDRES 04/01/24 In Process 09:11 Date of Service: Apr 02, 2024 Billing Provider: RODO VAN MD Common Visit Codes: [id number] INP/OBS CARE(HIGH) RODO VAN MD Apr 02, 2024 08:34
[2024-04-03 01:00] VITALS: BP 132/76; PULSE 97; RESP 18; TEMP 98; O2SAT 95
[2024-04-03 05:00] VITALS: BP 135/81; PULSE 97; RESP 18; TEMP 98; O2SAT 96
[2024-04-03] MEDS ORDERED: CIPR-173 PO (07:56)
--- NOTE | 2024-04-03 08:00 | DVHDS2 ---
Discharge Summary Date of Admission Mar 29, 2024 at 15:48 Date of Discharge: Apr 03, 2024 Admitting Diagnosis Generalized weakness Wounds: None Labs/Diagnostic Data: Laboratory Results Test 04/02/24 16:38 04/01/24 05:34 03/31/24 05:22 03/30/24 05:43 POC Glucose 145 mg/dl (70-106) Vancomycin Level Trough < 3.0 ug/mL (5-10) White Blood Count 15.5 10^3/uL (4.4-10.8) Red Blood Count 4.20 10^6/uL (4.0-5.20) Hemoglobin 10.9 g/dL (12.2-16.2) Hematocrit 33.0 % (36.0-46.0) Mean Corpuscular Volume 78.5 fL (80.0-100.0) Mean Corpuscular Hemoglobin 26.0 pg (28.0-32.0) Mean Corpuscular Hemoglobin Concent 33.1 g/dL (32.0-36.0) Red Cell Distribution Width 18.1 % (11.8-14.3) Platelet Count 332 10^3/uL (140-450) Mean Platelet Volume 8.0 fL (6.9-10.8) Neutrophils (%) (Auto) 74.3 % (37.0-80.0) Lymphocytes (%) (Auto) 13.1 % (10.0-50.0) Monocytes (%) (Auto) 12.2 % (0.0-12.0) Eosinophils (%) (Auto) 0.2 % (0.0-7.0) Basophils (%) (Auto) 0.2 % (0.0-2.0) Neutrophils # (Auto) 11.5 10 ^3/uL (1.6-8.6) Lymphocytes # (Auto) 2.0 10 ^3/uL (0.4-5.4) Monocytes # (Auto) 1.9 10 ^3/uL (0-1.3) Eosinophils # (Auto) 0 10 ^3/uL (0-0.8) Basophils # (Auto) 0 10 ^3/uL (0-0.2) Nucleated Red Blood Cells 0.0 % Creatinine 0.95 mg/dL (0.550-1.02) Glomerular Filtration Rate Calc 71 mL/min (>90) Sodium Level 137 mmol/L (136-145) Potassium Level 3.3 mmol/L (3.5-5.1) Chloride Level 103 mmol/L (98-107) Carbon Dioxide Level 27 mmol/L (20-31) Anion Gap 7 (5-15) Blood Urea Nitrogen 9 mg/dL (9-23) BUN/Creatinine Ratio 10.1 (10.0-20.0) Serum Glucose 159 mg/dL (74-106) Hemoglobin A1c 6.9 % A1C (<5.7) Calcium Level 9.5 mg/dL (8.7-10.4) Test 03/29/24 15:41 03/29/24 10:19 03/29/24 10:00 Lactic Acid Level 1.9 mmol/L (0.4-2.0) Lipase 55 U/L (12-53) Urine Color Light-yellow (Yellow) Urine Clarity Cloudy (Clear) Urine pH 6.0 (5.0-9.0) Urine Specific [place] 1.007 (1.001-1.035) Urine Protein 1+ (Negative) Urine Ketones Negative (Negative) Urine Blood Trace /uL (Negative) Urine Nitrite Negative (Negative) Urine Bilirubin Negative (Negative) Urine Urobilinogen Normal mg/dL (Negative) Urine Leukocyte Esterase 3+ /uL (Negative) Urine RBC 3 /hpf (0 - 4) Urine WBC 348 /hpf (0 - 5) Urine Squamous Epithelial Cells Few /hpf (<5) Urine Bacteria Few /hpf (None Seen) Urine Glucose 4+ mg/dL (Normal) Other Laboratory Tests 03/31/24 05:22 03/30/24 05:43 Brief Hx & Hospital Course: 53-year-old female with a history of diabetes came in complaining of generalized weakness. CT abdomen pelvis showed bilateral pyelonephritis urine showed urinary tract infection patient had bacteremia with E coli treated with Levaquin. Repeat blood cultures came negative. Patient feels better afebrile stable vital signs discharged home on Cipro. Consults/Reason for consult None Operations or Procedures None Condition at Discharge: Fair Final Diagnosis/Problems List Sepsis Secondary to acute urinary tract infection Acute urinary tract infection: Treated with Levaquin, Bacteremia with E coli sensitive to Levaquin, continue Levaquin, repeat blood cultures negative Acute bilateral pyelonephritis Diabetes: Insulin sliding scale Discharge Disposition: Home Discharge Instruct/Medications Diet: Consistent carbohydrate Activity: No Restrictions, As Tolerated Follow Up/Referral: Follow up with your primary Dr Medications: Cipro Transmitted to [facility] [id number] [address] (Time taken for discharge summary 35 minutes) Discharge Statement: "Patient was advised to return to the ER or call 911 if any headaches, dizziness, shortness of breath, chest pain, abdominal pain, bleeding, fevers, or worsening of medical condition. Patient was counseled about treatment plan, medications, possible side effects, patientverbalized understanding. All questions were answered to the best of my ability. This discharge took greater then 30 minutes in planning, reviewing documentation, counseling the patient, and discussing with other team members." ASSESSMENT ASSESSMENT Hospital Course Improved Assessment Sepsis Secondary to acute urinary tract infection Acute urinary tract infection: Treated with Levaquin, Bacteremia with E coli sensitive to Levaquin, continue Levaquin, repeat blood cultures negative Acute bilateral pyelonephritis Diabetes: Insulin sliding scale Date of Service: Apr 03, 2024 Billing Provider: RODO VAN MD Common Visit Codes: [id number] DISCH DAY >30min RODO VAN MD Apr 03, 2024 08:00
[2024-04-03 08:23] VITALS: BP 136/75; PULSE 94; RESP 18; TEMP 98.3; O2SAT 97
[2024-04-03 13:00] VITALS: BP 124/73; PULSE 67; RESP 19; TEMP 98.3; O2SAT 94
[2024-04-03 15:39] VITALS: BP 124/73; PULSE 67; RESP 19; TEMP 98.3; O2SAT 94
[2024-04-03 16:46] VITALS: BP 140/78; PULSE 86; RESP 19; TEMP 97.9; O2SAT 95
== END 2024-04-03 18:57 | disposition home or self-care (01) | DRG 872 ==
LOC: ER 09:37 → OVERFLOW 15:48 → CENTRAL 03-30 01:12
PROVIDERS: ADMIT Registered Nurse General Practice; ATTEND Family Medicine
DX: A41.51 Sepsis due to Escherichia coli [E. coli] (principal); N10 Acute pyelonephritis; N39.0 Urinary tract infection, site not specified; E11.40 Type 2 diabetes mellitus with diabetic neuropathy, unspecified; B96.20 Unspecified Escherichia coli [E. coli] as the cause of diseases classified elsewhere; E78.5 Hyperlipidemia, unspecified; F41.9 Anxiety disorder, unspecified; Z88.1 Allergy status to other antibiotic agents; Z88.0 Allergy status to penicillin; Z90.711 Acquired absence of uterus with remaining cervical stump; Z98.891 History of uterine scar from previous surgery
CPT/HCPCS: 36415; 74176; 80048; 80202; 81001; 82565; 82962; 83036; 83605; 83690; 85025; 87040; 87077; 87186; 93005; 96361; 96365; 96366; 99291; 99292; G0378; J1815; J1956